=== PATIENT | male | born 1950 | race Caucasian/White ===

== ENCOUNTER 2024-05-27 07:26 | Outpatient (CLI) | payer OTHER | END 2024-05-27 07:27 | disposition home or self-care (01) | LOC: CSHCP 07:26 | PROVIDERS: ATTEND Family Medicine Sports Medicine | DX: R05.3 Chronic cough (principal); R06.00 Dyspnea, unspecified; J98.11 Atelectasis; R94.2 Abnormal results of pulmonary function studies | CPT/HCPCS: 71250; 94060; 94760 ==